=== PATIENT | male | born 1995 | race African-American/Black ===

== ENCOUNTER 2024-06-09 15:16 | Emergency (ER) | payer OTHER ==
[~2024-06-09] VITALS: Ht 175.3 cm; Wt 88.0 kg
[2024-06-09 15:22] VITALS: BP 149/80; TEMP 98.8
[2024-06-09] MEDS ORDERED: CETI-90 PO (15:39)
[2024-06-09] MEDS ORDERED: FLUT16SP16 BNOSTRILS (15:39)
[2024-06-09 15:45] VITALS: O2SAT 99
== END 2024-06-09 15:46 | disposition home or self-care (01) ==
LOC: ER 15:22
DX: J31.0 Chronic rhinitis (principal); F17.200 Nicotine dependence, unspecified, uncomplicated; R09.81 Nasal congestion; Z60.2 Problems related to living alone; Z79.899 Other long term (current) drug therapy